=== PATIENT | female | born 1985 | race Caucasian/White ===

== ENCOUNTER 2024-06-13 18:42 | Emergency (ER) | payer OTHER ==
[2024-06-13 18:54] VITALS: BP 127/84; PULSE 80; RESP 16; TEMP 98.3; BMI 26.4
[2024-06-13] MEDS: IBUPROFEN 400 MG TABLET (FP) PO ONE (19:34)
== END 2024-06-13 20:05 | disposition home or self-care (01) ==
LOC: FER 18:42
DX: S89.92XA Unspecified injury of left lower leg, initial encounter (principal); X50.1XXA Overexertion from prolonged static or awkward postures, initial encounter
CPT/HCPCS: 73562-TC-LT-FY; 99283-25